=== PATIENT | male | born 1990 | race Hispanic/Latino ===

== ENCOUNTER → 2018-10-20 | Outpatient (CLI) | payer OTHER ==
--- NOTE | 2018-10-20 09:55 | REP ---
Left ankle series: Four views. History: Injury in a fall. Findings: Four views of the left ankle demonstrate an intact ankle mortise. No fractures seen. Soft tissues are unremarkable. Impression: Negative radiographs of the left ankle. Electronically Signed by Taiwo Colunga MD 10/20/2018 09:47 A
--- NOTE | 2018-10-20 09:57 | REP ---
Left clavicle: Two views. History: Injury in a fall. Findings: Two views of the left clavicle demonstrate irregularity of the distal clavicle with some bony hypertrophy suggestive of an old healed distal clavicle fracture. There is a mild osteoarthritic hypertrophy at the AC joint. The AC and glenohumeral joints are normally aligned. 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 No acute fracture is seen. Impression: Evidence of old injury of the distal clavicle. No acute fracture seen. Electronically Signed by Taiwo Colunga MD 10/20/2018 09:49 A
--- NOTE | 2018-10-20 10:10 | REP ---
LEFT SHOULDER, THREE VIEWS: HISTORY: Fall. There is no acute fracture or dislocation. There is deformity of the distal clavicle secondary to previous injury. There is minimal narrowing of the acromioclavicular joint space. There is a partial ossification of the the coracoclavicular ligament. The glenohumeral joint space is normal in appearance. IMPRESSION: There is no acute fracture or dislocation. Electronically Signed by Alonzo Davis MD 10/20/2018 10:17 A
== END ==
LOC: M RAD 08:58
PROVIDERS: ATTEND Surgery
DX: S49.92XA Unspecified injury of left shoulder and upper arm, initial encounter (principal); S99.912A Unspecified injury of left ankle, initial encounter; W19.XXXA Unspecified fall, initial encounter; Y92.89 Other specified places as the place of occurrence of the external cause; Y93.89 Activity, other specified; Y99.8 Other external cause status

== ENCOUNTER → 2018-11-27 | Outpatient (CLI) | payer OTHER ==
--- NOTE | 2018-11-28 13:44 | REP ---
Thyroid uptake and scan: History: Thyrotoxicosis. Technique: 386.0 microcuries of I 123 sodium iodine is ingested and 24 uptake values acquired along with functional thyroid images. Findings: The 24 uptake value is elevated 41.4% (25-35%). Functional images demonstrate homogeneous enlargement and function. No cold or warm lesion is seen. The right and left lobes of the thyroid each measure 7.7 cm in greatest the cranial caudal length. Impression: Homogeneous function, enlarged gland, increased uptake. Findings consistent with Graves disease. Electronically Signed by Taiwo Colunga MD 11/28/2018 01:36 P
== END ==
LOC: M RAD 12:32
PROVIDERS: ATTEND Surgery
DX: E04.9 Nontoxic goiter, unspecified (principal)
CPT/HCPCS: 78012; A9516

== ENCOUNTER → 2018-12-21 | Outpatient (CLI) | payer OTHER ==
--- NOTE | 2018-12-22 17:27 | REP ---
THYROID ULTRASOUND: Real-time sonographic evaluation of the thyroid performed and correlated with the nuclear medicine scan 11/28/2018 which showed enlarged thyroid and findings compatible with Grave's disease. The ultrasound shows significant enlargement of both lobes of the thyroid, right measuring 7.0 x 3.1 x 2.9 cm and left lobe 7.2 x 3.4 x 2.8 cm. No discrete cystic or solid nodule is seen. There is somewhat increased blood flow to both lobes of the thyroid. IMPRESSION: Significantly enlarged thyroid without a discrete cystic or solid mass, compatible with the scintigraphic findings of Grave's disease. Electronically Signed by Frank Mcnally MD 12/22/2018 08:01 P
== END ==
LOC: M RAD 12:53
PROVIDERS: ATTEND Surgery
DX: E05.00 Thyrotoxicosis with diffuse goiter without thyrotoxic crisis or storm (principal)